=== PATIENT | female | born 1980 | race Caucasian/White ===

== ENCOUNTER 2021-02-24 01:15 | Emergency (ER) | payer SELFPAY ==
[~2021-02-24] VITALS: Ht 162.6 cm; Wt 130.0 kg
[2021-02-24 01:19] VITALS: BP 135/81
[2021-02-24] MEDS ORDERED: HYDROcodone/APAP 5/325 TABLET PO ONE (02:00)
[2021-02-24] MEDS ORDERED: KETOROLAC 30 MG/1 ML IM ONE (02:00)
[2021-02-24] MEDS ORDERED: KETOROLAC 30 MG/1 ML ONE (02:01)
[2021-02-24] MEDS ORDERED: HYDROcodone/APAP 5/325 TABLET ONE (02:01)
--- NOTE | 2021-02-24 04:05 | NUR ---
Patient/Caregiver given discharge instructions and they have confirmed that they understand the instructions. Patient ambulatory with steady gait. NAD, all questions answered appropriately, denies additional needs at this time. No personal belongings left in room after discharge.
== END 2021-02-24 04:07 | disposition home or self-care (01) ==
LOC: ED 02:02
DX: S39.012A Strain of muscle, fascia and tendon of lower back, initial encounter (principal); W01.0XXA Fall on same level from slipping, tripping and stumbling without subsequent striking against object, initial encounter; Y93.89 Activity, other specified; Y92.009 Unspecified place in unspecified non-institutional (private) residence as the place of occurrence of the external cause; Y99.8 Other external cause status
CPT/HCPCS: 72110; 72220; 96372; 99284; J1885